=== PATIENT | male | born 1975 | race Caucasian/White ===

== ENCOUNTER 2023-09-20 08:25 | Emergency (ER) | payer OTHER, SELFPAY ==
--- NOTE | ~2023-09-20 | XR_ITS ---
Clinical Indication: Cough PA and lateral views of the chest: Comparison: None Findings: The lungs are clear, without evidence of focal consolidation or pleural effusion. Cardiome diastinal silhouette is within normal limits. Bones and soft tissues are unremarkable. Impression: Normal chest. Reviewed, dictated and finalized at location . REPRESENTATIVE Impression: Normal chest.
--- NOTE | ~2023-09-20 | XR_ITS ---
EXAMINATION: XR foot RT min 3V DATE: 09/20/2023 11:00 INDICATION: Right foot diabetic ulcers involving the first, second, and third toes. TECHNIQUE: 4 views of right foot were obtained. COMPARISON: None. FINDINGS: There is moderate hallux valgus. No fracture. There is mild osteoarthritis of first metatar sophalangeal joint and first interphalangeal joint. There are enthesophytes at the posterior and plan tar aspects of calcaneal tuberosity. Vascular calcifications are noted. IMPRESSION: 1. No evidence of osteomyelitis. Reviewed, dictated and finalized at location A. K UNLOADER
[2023-09-20 08:38] VITALS: BP 151/102; PULSE 101; RESP 16; TEMP 36.9; O2SAT 100
--- NOTE | 2023-09-20 09:28 | ED.WOUNDLAC ---
HPI - Wound/Laceration General Chief Complaint: Wound/Laceration Stated Complaint: DIABETIC TOE ISSUES Time Seen by Provider: 09/20/23 09:03 History of Present Illness HPI narrative: 47-year-old male with history of CAD, s/p cardiac catheterization, insulin-dependent type 2 diabetes reports for evaluation for blisters, pain and redness to his right toes x1 day. Patient states 6 weeks ago, he developed infections in all of his toes with blisters. States he saw his PCP and was started on 2 antibiotics. States he took the antibiotics for 2 weeks with significant improvement. Per chart review, patient filled 14 days of doxy and Augmentin on 08/08/2023. States yesterday, his toes began to blister and became red and painful again. He is also reporting a productive cough with white mucus times 6 days and a sore throat. Denies fever, chest pain shortness of breath, nausea or vomiting, abdominal pain. He does not smoke and denies history of COPD. He has an appointment with an infectious disease physician in 6 days. States he has been compliant with his insulin. Related Data Allergies Allergy/AdvReac Type Severity Reaction Status Date / Time No Known Allergies Allergy Mild Verified 02/08/08 14:12 Review of Systems Review of Systems: CONSTITUTIONAL: Denies fever, chills, or sweats. EYES: Denies visual changes, redness, or discharge. ENT: see HPI CARDIOVASCULAR: Denies chest pain, palpitations, or edema. RESPIRATORY: Denies cough or dyspnea. GASTROINTESTINAL: Denies abdominal pain, nausea, vomiting, or diarrhea. GENITOURINARY: Denies dysuria or hematuria. SKIN: see HPI MUSCULOSKELETAL: Denies back pain, joint pain, or myalgia. NEUROLOGIC: Denies headache, numbness, or weakness. PSYCHIATRIC: Denies anxiety or depression. Exam Narrative: GENERAL: Well-appearing, well-nourished, and in no acute distress. nontoxic appearing HEAD: Normocephalic, atraumatic. EYES: PERRLA and EOMI. ENT: Nares clear, no rhinorrhea or epistaxis. Mucous membranes moist. TMs are zee nonbulging. Posterior pharynx without erythema, edema. uvula is midline. No tonsillar hypertrophy or exudates. NECK: Supple. CHEST: Clear to auscultation. No respiratory distress. HEART: Regular rate and rhythm. No murmur heard. Normal peripheral pulses. ABDOMEN: Soft, nontender, nondistended, normal active bowel sounds. EXTREMITIES: Normal range of motion. SKIN: R foot: 1st toe with medial blister, no erythema. 2nd toe with erythema, warmth, tenderness and blisters. 3rd and 4th toes with blisters without erythema. All blisters are intact, no purulence. there Is no necrotic tissue. Cellulitic changes to the 2nd toe are isolated do not extend proximally into the foot. Patient able To move all toes. Sensation intact. Cap refill less than 2. DP pulse 2 +. NEURO: No focal deficits. Alert and oriented x3 Course Vital Signs Vital signs: Vital Signs Temperature 98.5 F 09/20/23 08:38 Pulse Rate 101 H 09/20/23 08:38 Respiratory Rate 16 09/20/23 08:38 Blood Pressure 151/102 H 09/20/23 08:38 Pulse Oximetry 100 09/20/23 08:38 Temperature 98.5 F 09/20/23 08:38 Pulse Rate 101 H 09/20/23 08:38 Respiratory Rate 16 09/20/23 08:38 Blood Pressure 151/102 H 09/20/23 08:38 Pulse Oximetry 100 09/20/23 08:38 MDM - Wound/Laceration MDM Narrative Medical decision making narrative: 47-year-old male presents to the emergency department for blistering, pain and erythema to his right right toes x1 day. He is also here for sore throat and cough x6 days. Vital significant for elevated blood pressure in mild tachycardia 101, otherwise unremarkable. He is afebrile and nontoxic on exam. Exam is significant for the above. CBC is without leukocytosis, no bandemia. CRP and ESR mildly elevated to 1.9 and 21 respectively. Chemistries show hyperglycemia 267, normal bicarb and no anion gap. Patient tested positive for flu B. Chest x-ray
[2023-09-20 10:07] LABS: Basophils Percent Auto 0.2 % (0.2-1.2); Eosinophils Percent Auto 0.4 % (0-4.4); Hematocrit 41.2 % (42.0-52.0); Hemoglobin 13.9 g/dL (14.0-18.0); Immature Granulocyte Absolute 0.01 K/mm3 (0.00-0.031); Immature Granulocyte Percent A 0.2 % (0-0.5); Immature Platelet Fraction Pct 8.9 % (0.9-11.2); Lymphocytes Absolute Auto 0.81 K/mm3 (0.9-3.2); Mean Corpuscular HGB Conc 33.7 g/dl (32-36); Mean Platelet Volume 11.4 fl (7.4-10.4); Monocytes Absolute Auto 0.4 K/mm3 (0.1-0.6); Monocytes Percent Auto 7.4 % (2.6-8.5); Neutrophils Absolute Auto 3.6 K/mm3 (1.3-6.7); Neutrophils Percent Auto 74.8 % (45.5-73.1); Platelet Count Result 126 k/mm3 (150-375); Red Blood Count 4.79 M/mm3 (4.6-6.20); Red Cell Distribution Width 12.5 % (11.5-14.5); White Blood Count 4.8 K/mm3 (4.5-10.0)
[2023-09-20 10:18] LABS: Lactic Acid Reflex 0.9 mmol/L (0.7-2.0)
[2023-09-20 10:20] LABS: Alanine Aminotransferase 17 U/L (6-50); Albumin Level 4.1 g/dL (3.5-5.1); Alkaline Phosphatase 85 U/L (38-126); Anion Gap 6 mmol/L (8-16); Aspartate Amino Transferase 23 U/L (17-59); Bilirubin,Total 0.8 mg/dL (0.2-1.3); Blood Urea Nitrogen 16 mg/dL (9-20); CRP 1.9 mg/dL (<1.0); Calcium 8.9 mg/dL (8.4-10.2); Carbon Dioxide 27 mmol/L (22-30); Chloride 98 mmol/L (98-107); Estimated CRCL calculation 91 ml/min; Estimated Glomerular Filt Rate > 60; Glucose 267 mg/dL (65-110); Potassium 4.4 mmol/L (3.4-5.0); Sodium 131 mmol/L (137-145)
[2023-09-20 10:30] LABS: Strep Group A RT-PCR NOT DETECTED (Negative)
[2023-09-20 10:41] LABS: Influenza A QL RT-PCR Negative (Negative); Influenza B QL RT-PCR Positive (Negative); RSV RNA, RT-PCR Negative (Negative); SARS-CoV-2 RNA PCR Negative (Negative)
[2023-09-20 11:45] LABS: Erythrocyte Sedimentation Rate 21 mm/hr (0-20)
[2023-09-20 12:59] VITALS: BP 148/96; PULSE 96; RESP 18; O2SAT 98
== END 2023-09-20 13:00 | disposition home or self-care (01) ==
PROVIDERS: Emergency Provider Physician Assistant; PCP Internal Medicine
DX: E11.628 Type 2 diabetes mellitus with other skin complications (principal); L03.115 Cellulitis of right lower limb; J10.1 Influenza due to other identified influenza virus with other respiratory manifestations; Z20.822 Contact with and (suspected) exposure to COVID-19; I25.10 Atherosclerotic heart disease of native coronary artery without angina pectoris; Z79.4 Long term (current) use of insulin
CPT/HCPCS: 36415; 71046; 73630; 80053; 83605; 85025; 85055; 85652; 86140; 87637; 87651; 99284

== ENCOUNTER 2023-10-14 19:27 | Observation (INO) | payer OTHER, SELFPAY ==
--- NOTE | ~2023-10-14 | XR_ITS ---
EXAM: XR foot RT min 3V DATE: 10/14/2023 20:34 HISTORY: right foot diabetic infection . COMPARISON: 09/20/2023. FINDINGS: Normal mineralization. No fracture or dislocation. No lytic or blastic lesion. Hallux valg us with degenerative changes first MTP joint. Plantar and Achilles enthesopathy No erosion or periost eal change. Vascular calcifications. IMPRESSION: No acute osseous finding in the right foot . Reviewed, dictated and finalized at location K.
[2023-10-14 19:30] VITALS: BP 150/90; PULSE 104; RESP 16; TEMP 37; O2SAT 100
--- NOTE | 2023-10-14 19:53 | ED.EXTPRO ---
HPI - Extremity Problem General Chief complaint: Extremity Problem,Nontraumatic <Leann Bashir PA-C - Last Filed: 10/14/23 23:07> Stated complaint: SWELLING <TEDDY Yu Last Filed: 10/14/23 23:07> Time Seen by Provider: 10/14/23 19:35 <TEDDY Yu Last Filed: 10/14/23 23:07> Source: patient <TEDDY Yu Last Filed: 10/14/23 23:07> Mode of arrival: ambulatory <TEDDY Yu Last Filed: 10/14/23 23:07> Limitations: no limitations <TEDDY Yu Last Filed: 10/14/23 23:07> History of Present Illness HPI Narrative: This is a 47 year old male that presents to the ER for right foot pain. Reports he woke up this morning with blisters on his toes. They are painful. Reports swelling and redness to the area. Reports he has had some drainage from the great toe. Reports history of DM. Denies fevers. <TEDDY Yu Last Filed: 10/14/23 23:07> Related Data Home medications: Home Medications Medication Instructions Recorded Confirmed atorvastatin 40 mg tablet 40 mg PO DAILY 10/15/23 10/15/23 insulin glargine U-300 conc 300 10 unit subcut DAILY 10/15/23 10/15/23 unit/mL (1.5 mL) subcutaneous pen (Toujeo SoloStar U-300 Insulin) insulin glargine U-300 conc 300 30 unit subcut QHS 10/15/23 10/15/23 unit/mL (1.5 mL) subcutaneous pen (Toujeo SoloStar U-300 Insulin) <TEDDY Yu Last Filed: 10/14/23 23:07> Allergies/Adverse reactions: Allergies Allergy/AdvReac Type Severity Reaction Status Date / Time No Known Allergies Allergy Mild Verified 10/14/23 19:35 <TEDDY Yu Last Filed: 10/14/23 23:07> Review of Systems Review of Systems: CONSTITUTIONAL: Denies fever SKIN: Reports erythema and edema <Leann Bashir PA-C - Last Filed: 10/14/23 23:07> All systems reviewed & are unremarkable except as noted in HPI and below <Leann Bashir PA-C - Last Filed: 10/14/23 23:07> PMFSH Past Medical History Medical History: Medical History (Updated 10/15/23 @ 01:13 by Lyndon Rodriguez MD) History of diabetes mellitus <Leann Bashir PA-C - Last Filed: 10/14/23 23:07> Social History Social History: Social History (Updated 10/14/23 @ 19:54 by Leann Bashir PA-C) Smoking status: Never smoker Smokeless tobacco user: chewing tobacco Alcohol intake: never Substance use: never Substance use type: does not use Do You Feel Safe in your Home?: Yes Lack of Transportation: No Lack of Food: Never True Current Housing: I Have Housing Concerned About Future Housing: No Difficulty Paying Gas/Electric Bills: No Difficulty Paying for Meds: No Currently Unemployed: No Education: Grade School Difficulty w/ Childcare or Family Care: No Spiritual care concerns: No <Leann Bashir PA-C - Last Filed: 10/14/23 23:07> Exam Narrative: GENERAL: Well-appearing, well-nourished, and in no acute distress. HEAD: Normocephalic, atraumatic. EYES: EOMI. CHEST: Clear to auscultation. No respiratory distress. No wheezes rales or rhonchi HEART: Regular rate and rhythm. No murmur heard. Normal peripheral pulses. EXTREMITIES: Normal range of motion. Blisters present on the distal phalanx of all the toes of the right foot with surrounding redness. Normal DP pulse. Lymphangitic streaking noted into the foot SKIN: Warm, dry, no rash. NEURO: No focal deficits. Alert and oriented x3. PSYCH: Normal mood and affect <Leann Bashir PA-C - Last Filed: 10/14/23 23:07> Course Course Emergency Course: Patient updated on workup and recommendation for admission <Leann Bashir PA-C - Last Filed: 10/14/23 23:07> SCALE MECHANIC/PA Physician Supervision For this patient encounter, I reviewed the SCALE MECHANIC or PA documentation, treatment plan, and medical decision making and had [id number] time with this patient. I performed all aspects of the MDM as documented.
[2023-10-14 20:01] LABS: Glucose Point of Care 185 mg/dl (65-105)
[2023-10-14 20:03] LABS: Basophils Percent Auto 0.4 % (0.2-1.2); Eosinophils Absolute Auto 0.3 K/mm3 (0-0.3); Eosinophils Percent Auto 3.7 % (0-4.4); Hematocrit 40.5 % (42.0-52.0); Hemoglobin 13.5 g/dL (14.0-18.0); Immature Granulocyte Absolute 0.02 K/mm3 (0.00-0.031); Immature Granulocyte Percent A 0.3 % (0-0.5); Lymphocytes Absolute Auto 1.36 K/mm3 (0.9-3.2); Lymphocytes Percent Auto 17.9 % (18.3-44.2); Mean Corpuscular HGB Conc 33.3 g/dl (32-36); Mean Corpuscular Hemoglobin 28.8 pg (26-34); Mean Corpuscular Volume 86.4 fl (80-100); Mean Platelet Volume 11.7 fl (7.4-10.4); Monocytes Absolute Auto 0.5 K/mm3 (0.1-0.6); Monocytes Percent Auto 5.9 % (2.6-8.5); Neutrophils Absolute Auto 5.5 K/mm3 (1.3-6.7); Neutrophils Percent Auto 71.8 % (45.5-73.1); Red Blood Count 4.69 M/mm3 (4.6-6.20); Red Cell Distribution Width 12.7 % (11.5-14.5); White Blood Count 7.6 K/mm3 (4.5-10.0)
[2023-10-14 20:23] LABS: Lactic Acid Reflex 1.3 mmol/L (0.7-2.0); Platelet Clumps Present; Platelet Estimate Adequate (Adequate); Schistocytes None Seen
[2023-10-14 20:25] LABS: Alanine Aminotransferase 12 U/L (6-50); Albumin Level 4.1 g/dL (3.5-5.1); Alkaline Phosphatase 72 U/L (38-126); Anion Gap 5 mmol/L (8-16); Aspartate Amino Transferase 18 U/L (17-59); Bilirubin,Total 0.5 mg/dL (0.2-1.3); Blood Urea Nitrogen 15 mg/dL (9-20); CRP < 0.5 mg/dL (<1.0); Calcium 8.9 mg/dL (8.4-10.2); Carbon Dioxide 25 mmol/L (22-30); Chloride 103 mmol/L (98-107); Estimated Glomerular Filt Rate > 60; Glucose 198 mg/dL (65-110); Potassium 4.1 mmol/L (3.4-5.0); Sodium 133 mmol/L (137-145)
[2023-10-14 20:33] LABS: Erythrocyte Sedimentation Rate 15 mm/hr (0-20)
[2023-10-14 22:32] VITALS: BP 116/66; PULSE 96; RESP 15; O2SAT 100
[2023-10-14] MEDS: CEFEPIME 2 GM/NS 50 ML 2 GM/50 ML BAG IVPB (22:47)
--- NOTE | 2023-10-14 22:54 | PM.IMHP ---
H&P: HPI History of Present Illness Date/Time: 10/14/23 22:54 Chief Complaint: right big toe wound Narrative: this is a 47-year-old male with past medical history significant for insulin-dependent diabetes mellitus, patient presents to the emergency room due to right big toe wound seconds there and 4th toe blisters. Patient denies any fevers, rigors, chills, nausea, vomiting, diarrhea. Notice this changes over the course of 1 day. Patient had been taking antibiotic in the outpatient setting. Preliminary workup has been essentially nonrevealing. Patient has been admitted for further evaluation management and treatment. EXAM:? XR foot RT min 3V DATE: 10/14/2023 20:34 HISTORY: right foot diabetic infection . COMPARISON:? 09/20/2023. FINDINGS:? Normal mineralization. No fracture or dislocation. No lytic or blastic lesion. Hallux valgus with degenerative changes first MTP joint. Plantar and Achilles enthesopathy No erosion or periosteal change. Vascular calcifications. IMPRESSION: No acute osseous finding in the right foot Review of Systems Review of Systems: right big toe wound 2nd 3rd and 4th toe blister Constitutional: Constitutional: Denies chills, Denies fever(s) and Denies night sweats Eyes: Eyes: Denies change in vision ENT: Denies dysphagia and Denies odynophagia Cardiovascular: Cardiovascular: Denies chest pain, Denies radiating jaw, neck or arm pain and Denies palpitations Respiratory: Respiratory: Denies chest congestion, Denies cough and Denies excessive phlegm production Gastrointestinal: Gastrointestinal: Denies abdominal pain, Denies nausea and Denies vomiting Genitourinary: Genitourinary: Denies dysuria Musculoskeletal: Musculoskeletal: Reports other ( right big toe wound 2nd 3rd 4th toe blisters) Integumentary/Breasts: Skin/Breast: Reports skin ulcer ( right big toe) and Reports wounds Endocrine: Endocrine: Denies cold intolerance, Denies heat intolerance, Denies polyphagia, Denies polydipsia, Denies polyuria and Denies palpitations Hematologic/Lymphatic: Hematologic/Lymphatic: Reports no additional hematologic/lymphatic complaints and Reports as per HPI Allergic/Immunologic: Allergic/Immunologic: Reports no additional allergic/immunologic complaints and Reports as per HPI [facility] Past Medical History Medical History (Updated 10/15/23 @ 01:13 by Lyndon Rodriguez MD) History of diabetes mellitus Social History Social History (Updated 10/14/23 @ 19:54 by Leann Bashir PA-C) Smoking status: Never smoker Smokeless tobacco user: chewing tobacco Alcohol intake: never Substance use: never Substance use type: does not use Do You Feel Safe in your Home?: Yes Lack of Transportation: No Lack of Food: Never True Current Housing: I Have Housing Concerned About Future Housing: No Difficulty Paying Gas/Electric Bills: No Difficulty Paying for Meds: No Currently Unemployed: No Education: Grade School Difficulty w/ Childcare or Family Care: No Spiritual care concerns: No Meds Home Medications and Allergies Home Medications Medication Instructions Recorded Confirmed Type amoxicillin 875 mg-potassium 1 tablet PO Q12H 14 days #28 tabs 09/20/23 Rx clavulanate 125 mg tablet atorvastatin 40 mg tablet 40 mg PO DAILY 10/15/23 10/15/23 History insulin glargine U-300 conc 300 10 unit subcut DAILY 10/15/23 10/15/23 History unit/mL (1.5 mL) subcutaneous pen (Toujeo SoloStar U-300 Insulin) insulin glargine U-300 conc 300 30 unit subcut QHS 10/15/23 10/15/23 History unit/mL (1.5 mL) subcutaneous pen (Toujeo SoloStar U-300 Insulin) Allergies Allergy/AdvReac Type Severity Reaction Status Date / Time No Known Allergies Allergy Mild Verified 10/14/23 19:35 Vital Signs Vital Signs - 24 hr 10/14/23 19:30 10/14/23 22:32 Temperature 98.6 F Pulse Rate 104 H 96 Respiratory Rate 16 15 Blood Pressure 150/90 H 116/66 Pulse Oxi
[2023-10-14] MEDS: VANCOMYCIN 2,000 MG/NS 500 ML 2,000 MG/500 ML BAG 250 MG IVPB (23:23)
[2023-10-14] MEDS: metroNIDAZOLE 500 MG/ISO 100ML 500 MG/100 ML BAG 100 MG IVPB (23:24)
[2023-10-15] VITALS: BP 129/80; PULSE 88; RESP 18; TEMP 36.1; O2SAT 100; BMI 28.0
--- NOTE | 2023-10-15 | ADMGEN ---
This patient, Kurt Castro, was admitted to [facility] Surg Room 317-02. Patient/family oriented to hospital policies and general routines including ID bracelet, bed and alarms, visiting hours, pain management, procedures, bathroom and other care routines, personal items, smoking policy, room service/diet, and visiting hours. Information on how to activate the Rapid Response Team has been discussed. Patient/Family are encouraged to report perceived risks to care and to ask questions if they do not understand what they are told or what they should do.
[2023-10-15 05:43] VITALS: BP 113/65; PULSE 84; RESP 18; TEMP 36.3; O2SAT 99
[2023-10-15 07:03] LABS: Estimated CRCL calculation 88 ml/min; Estimated Glomerular Filt Rate > 60
[2023-10-15 07:47] LABS: Glucose Point of Care 126 mg/dl (65-105)
[2023-10-15] MEDS: metroNIDAZOLE 500 MG/ISO 100ML 500 MG/100 ML BAG 100 MG IVPB ×2 (07:58→14:58)
[2023-10-15] MEDS: ATORVASTATIN 40 MG TABLET PO (07:58)
[2023-10-15] MEDS: CEFEPIME 2 GM/NS 50 ML 2 GM/50 ML BAG IVPB (10:36)
--- NOTE | 2023-10-15 11:10 | PM.IMPN ---
Progress Note: A&P Assessment and Plan (1) Diabetic infection of right foot: Code(s): E11.628 - Type 2 diabetes mellitus with other skin complications; L08.9 - Local infection of the skin and subcutaneous tissue, unspecified Status: Acute Assessment and Plan: patient started on cefepime Flagyl and vancomycin cultures in progress consult with ID pharmacy, plan to deescalate antibiotics (2) T2DM (type 2 diabetes mellitus): Code(s): E11.9 - Type 2 diabetes mellitus without complications Status: Acute Assessment and Plan: continue insulin carb consistent diet Accu-Cheks AC and HS (3) Blister (nonthermal), right great toe, sequela: Code(s): S90.421S - Blister (nonthermal), right great toe, sequela Status: Acute Assessment and Plan: - pt reports he has had similar dx in the past - he admits to wearing steel toe boots for work, for extended periods - he denies any recent trauma - reports he is compliant with home insulin - pre consultation with surgery reveals no debridement or surgical procedures are necessary at this time, recommends strict follow-up with assistant county attorney and consult for diabetic shoe recommendations Plan Continue home medications: VTE Prophylaxis: DIET: Anticipated hospital stay: > 2 days Code Status: full Subjective Date/time seen: 10/15/23 11:10 Interval history: 47-year-old male with a PMHx: of insulin-dependent diabetes, reported to the emergency room with complaints ongoing wound to right great toe along with reporting blisters to 3-5th digits. He denies any recent trauma to foot, he reports that this has occurred in the past. patient endorses that he wears steel-toed boots, he also states that his right foot/ leg is slightly larger than left side. Patient states that he was treated by his primary care provider, he states he was given antibiotics and his blisters cleared up on his right foot, he states since he has completed his antibiotic course in the last 3 weeks he has noticed that has blisters have return. Interval Hx: 10/14 pt seen this am, he is resting with eyes open, in no acute distress, he denies any overnight events. Review of Systems Review of Systems: All systems reviewed & are unremarkable except as noted in HPI and below Exam Narrative: General: A well-developed, nontoxic-appearing gentlemen, female sitting up in bed. HEENT: PERRL, EOMI. Oral mucosa moist. Neck: Supple. No midline cervical tenderness. Respiratory: Respirations are non- labored and lungs are clear to auscultation bilaterally. Cardiovascular: Regular rate and rhythm with S1-S2. Gastrointestinal: Abdomen is soft, non-tender, and non-distended with positive bowel sounds. Skin: Warm and dry. No rash or lesions on limited exam. Extremities: right great toe with blister on distal phalanx appreciate surrounding redness to right great toe, no other redness or streaking to right foot can be seen. Radial and pedal pulses intact. Neurological: Alert and oriented. Cranial nerves 2-12 are grossly intact. No gross focal deficits to casual conversation. Psychiatric: Pleasant and cooperative with normal mood and affect. Judgment and insight intact. Objective Data Vital Signs Vital Signs: Vital Signs - 24 hr 10/14/23 19:30 10/14/23 22:32 10/15/23 00:00 Temperature 98.6 F 97 F L Pulse Rate 104 H 96 88 Respiratory Rate 16 15 18 Blood Pressure 150/90 H 116/66 129/80 Pulse Oximetry 100 100 100 Oxygen Delivery Room Air 10/15/23 05:43 10/15/23 08:00 Temperature 97.4 F L Pulse Rate 84 Respiratory Rate 18 Blood Pressure 113/65 Pulse Oximetry 99 Oxygen Delivery Room Air Intake/Output Intake/Output: Intake & Output 10/12/23 10/13/23 10/14/23 10/15/23 23:59 23:59 23:59 23:59 Intake Total 50 1168 Output Total 200 Balance 50 968 Meds/Results Medications: Active Medications Generic Name Dose Route Start La
[2023-10-15] MEDS: VANCOMYCIN 1,500 MG/NS 500 ML 1,500 MG/500 ML BAG 250 MG IVPB (11:19)
[2023-10-15 11:29] LABS: Glucose Point of Care 152 mg/dl (65-105)
[2023-10-15 14:00] VITALS: BP 122/82; PULSE 91; RESP 20; TEMP 36.1; O2SAT 100
[2023-10-15 16:35] LABS: Glucose Point of Care 171 mg/dl (65-105)
[2023-10-15 18:37] LABS: Hemoglobin A1C 9.9 % (<5.7)
[2023-10-15 20:24] LABS: Glucose Point of Care 228 mg/dl (65-105)
[2023-10-15 20:25] VITALS: BP 153/96; PULSE 95; RESP 20; TEMP 36.5; O2SAT 100
[2023-10-15] MEDS: INSULIN GLARGINE (*BKC) 100 UNITS/ML 24 UNITS SUB-Q (20:31)
[2023-10-15] MEDS: DOXYCYCLINE HYCLATE 100 MG TABLET PO (20:31)
[2023-10-16 05:30] VITALS: BP 138/79; PULSE 87; RESP 16; TEMP 36.3; O2SAT 100
[2023-10-16 07:36] LABS: Glucose Point of Care 150 mg/dl (65-105)
[2023-10-16] MEDS: ATORVASTATIN 40 MG TABLET PO (08:12)
[2023-10-16] MEDS: DOXYCYCLINE HYCLATE 100 MG TABLET PO (08:12)
--- NOTE | 2023-10-16 09:11 | PM.DS ---
DS: Admitting Diagnosis Discharge Date 10/16/23 Admitting Diagnosis diabetic toe infection DS: Discharge Diagnosis Discharge Diagnosis (1) Blister (nonthermal), right great toe, sequela: Code(s): S90.421S - Blister (nonthermal), right great toe, sequela Status: Acute (2) T2DM (type 2 diabetes mellitus): Code(s): E11.9 - Type 2 diabetes mellitus without complications Status: Acute (3) Diabetic infection of right foot: Code(s): E11.628 - Type 2 diabetes mellitus with other skin complications; L08.9 - Local infection of the skin and subcutaneous tissue, unspecified Status: Acute DS: Summary Hospital Course Reason for hospitalization: Right foot diabetic infection Hospital Course: History of Present Illness HPI narrative: ? 47-year-old male with history of CAD, s/p cardiac catheterization, insulin-dependent type 2 diabetes reports for evaluation for blisters, pain and redness to his right toes x1 day.? Patient states 6 weeks ago, he developed infections in all of his toes with blisters.? States he saw his PCP and was started on 2 antibiotics.? States he took the antibiotics for 2 weeks with significant improvement.? Per chart review, patient? filled 14 days of doxy and Augmentin on 08/08/2023. States yesterday, his toes? began to blister? and became red and painful again.? He is also reporting a productive cough with white mucus times 6 days and a sore throat.? Denies fever, chest pain shortness of breath, nausea or vomiting, abdominal pain.? ? He does not smoke and denies history of COPD. He has an appointment with an infectious disease physician in 6 days. States he has been compliant with his insulin. Chief Complaint: ?right big toe wound Narrative: ?this is a 47-year-old male with past medical history significant for insulin-dependent diabetes mellitus, patient presents to the emergency room due to right big toe wound seconds there and 4th toe blisters.? Patient denies any fevers, rigors, chills, nausea, vomiting, diarrhea.? Notice this changes over the course of 1 day.? Patient had been taking antibiotic in the outpatient setting.? Preliminary workup has been essentially nonrevealing.? Patient has been admitted for further evaluation management and treatment. EXAM:? XR foot RT min 3V DATE: 10/14/2023 20:34 HISTORY: right foot diabetic infection . COMPARISON:? 09/20/2023. FINDINGS:? Normal mineralization. No fracture or dislocation. No lytic or blastic lesion. Hallux valgus with degenerative changes first MTP joint. Plantar and Achilles enthesopathy No erosion or periosteal change. Vascular calcifications. IMPRESSION: No acute osseous finding in the right foot Status at Discharge Functional status at discharge: independent ambulation Overall status at discharge: patient is progressing back to baseline Time Spent with Patient Time attestation: Total time spent providing and/or coordinating discharge services: Time spent: Less than 30 minutes Exam Narrative: General: A well-developed, nontoxic-appearing gentlemen, female sitting up in bed. HEENT: PERRL, EOMI. Oral mucosa moist. Neck: Supple. No midline cervical tenderness. Respiratory: Respirations are non- labored and lungs are clear to auscultation bilaterally. Cardiovascular: Regular rate and rhythm with S1-S2. Gastrointestinal: Abdomen is soft, non-tender, and non-distended with positive bowel sounds. Skin: Warm and dry. No rash or lesions on limited exam. Extremities: right great toe with blister on distal phalanx appreciate surrounding redness to right great toe, no other redness or streaking to right foot can be seen. Radial and pedal pulses intact. Neurological: Alert and oriented. Cranial nerves 2-12 are grossly intact. No gross focal deficits to casual conversation. Psychiatric: Pleasant and cooperative with normal mood and affect. Judgment and insight intact. DS: Data Data Completed and Pending Complete
[2023-10-16] MEDS: INSULIN GLARGINE (*BKC) 100 UNITS/ML 8 UNITS SUB-Q (09:51)
[2023-10-16 11:30] LABS: Glucose Point of Care 164 mg/dl (65-105)
[2023-10-16 14:00] VITALS: BP 105/60; PULSE 93; RESP 12; TEMP 36; O2SAT 100
== END 2023-10-16 15:00 | disposition home or self-care (01) ==
LOC: ANHED 23:07 → ANH3MEDSUR 23:38
PROVIDERS: Nurse Practitioner; Admitting Provider Internal Medicine; Emergency Provider Physician Assistant; PCP Internal Medicine; Visit Provider Internal Medicine
DX: S90.424A Blister (nonthermal), right lesser toe(s), initial encounter (principal); E11.628 Type 2 diabetes mellitus with other skin complications; L08.9 Local infection of the skin and subcutaneous tissue, unspecified; Z79.4 Long term (current) use of insulin; F17.220 Nicotine dependence, chewing tobacco, uncomplicated; X58.XXXA Exposure to other specified factors, initial encounter; I25.10 Atherosclerotic heart disease of native coronary artery without angina pectoris
CPT/HCPCS: 36415; 73630; 80053; 82565; 82948; 83036; 83605; 85025; 85055; 85652; 86140; 87040; 96365; 96366; 96367; 99285; A9270; G0378; J0692; J1815; J1836; J3370